=== PATIENT | female | born 1970 | race American Indian/Alaskan Native ===

== ENCOUNTER 2018-01-18 20:47 | Emergency (ER) | payer OTHER ==
[2018-01-18 21:05] VITALS: BP 103/71
[2018-01-19] MEDS ORDERED: TORADOL IM ONE
--- NOTE | 2018-01-19 | Emergency Department Report ---
ED Extremity Problem HPI - General Chief complaint: Extremity Injury, Lower Stated complaint: SWOLLEN HIP PAIN Time Seen by Provider: 01/18/18 23:45 Source: family Mode of arrival: Wheelchair Limitations: No Limitations - History of Present Illness Initial comments: 47-year-old -[place] female comes in with chronic left hip pain reports that she is having left hip pain that started on Sunday. Patient denies any trauma any injury. Patient reports that she took Percocet this morning at 7 AM. Patient denies any fever or chills denies any swelling to her left hip denies any warmth to her left hip. She reports her surgeon was Dr. Steve Beal. She is a past medical history of diabetes hypertension and anxiety. Patient's primary care provider is Dr. Jayme Juárez. Complaint: extremity pain -: days(s) (5) Location: left History of Same: Yes Radiation: none Severity scale (0 -10): 10 Quality: constant Improves with: nothing Worsens with: walking - Related Data Previous Rx's Medication Instructions Recorded Last Taken Type Ibuprofen [Motrin 600 MG tab] 600 mg PO Q8H PRN #30 tablet 01/19/18 Unknown Rx Allergies Allergy/AdvReac Type Severity Reaction Status Date / Time No Known Allergies Allergy Unverified 01/18/18 21:05 ED Review of Systems ROS: Stated complaint: SWOLLEN HIP PAIN Other details as noted in HPI Comment: All other systems reviewed and negative Musculoskeletal: arthralgia ED Past Medical Hx - Past Medical History Previous Medical History?: Yes Hx Hypertension: Yes Hx Diabetes: Yes Hx Psychiatric Treatment: Yes (anxiety) - Surgical History Past Surgical History?: Yes Additional Surgical History: hip replacement - Social History Smoking Status: Current Every Day Smoker Substance Use Type: None - Medications Home Medications: Home Medications Medication Instructions Recorded Confirmed Last Taken Type Ibuprofen [Motrin 600 MG tab] 600 mg PO Q8H PRN #30 tablet 01/19/18 Unknown Rx ED Physical Exam - General Limitations: No Limitations General appearance: alert (F hip), in no apparent distress, obese, other ( nontoxic) - Head Head exam: Present: atraumatic, normocephalic - Eye Eye exam: Present: EOMI - ENT ENT exam: Present: mucous membranes moist - Respiratory Respiratory exam: Present: normal lung sounds bilaterally. Absent: respiratory distress - Cardiovascular Cardiovascular Exam: Present: regular rate, normal rhythm. Absent: systolic murmur, diastolic murmur, rubs, gallop - Expanded Lower Extremity Exam Left Hip exam: Present: full ROM. Absent: swelling Upper Leg exam: Present: full ROM, tenderness (lateral trochanter). Absent: swelling, ecchymosis, erythema (no warmth, no redness) Knee exam: Present: normal inspection, full ROM. Absent: tenderness Lower Leg exam: Present: full ROM. Absent: tenderness, swelling Foot/Toe exam: Present: normal inspection, full ROM. Absent: tenderness, swelling - Back Exam Back exam: Present: normal inspection - Neurological Exam Neurological exam: Present: alert, oriented X3 - Psychiatric Psychiatric exam: Present: normal affect, normal mood - Skin Skin exam: Present: warm, dry, intact, normal color. Absent: rash ED Course Vital Signs 01/18/18 01/19/18 21:02 00:07 Temperature 98.7 F Pulse Rate 77 Respiratory 18 18 Rate Blood Pressure 103/71 O2 Sat by Pulse 97 Oximetry ED Medical Decision Making - Radiology Data Radiology results: report reviewed FINAL REPORT EXAM: XR HIP 2-3V LT HISTORY: hip pain concern for infection TECHNIQUE: An AP view of the pelvis was obtained along with additional view of the left hip. FINDINGS: There is previous total left arthroplasty. There is heterotopic ossification adjacent to the prosthesis. The soft tissues reveal multiple foci of air compatible with underlying infection. An underlying abscess cannot be excluded. There is no evidence of osteomyelitis otherwise. There is no evidence of fracture. The right hip joint is not show any acute changes. There hardware in the proximal right femur noted also. The SI joints appear normal. There are non specific calcifications along the floor pelvis. IMPRESSION: Foci of air in the soft tissues overlying the left hip. The findings are compatible underlying infection. An abscess cannot be excluded. Previous total left hip arthroplasty with areas of heterotopic calcification noted. No evidence of osteomyelitis otherwise. Transcribed By: RB Dictated By: TJ ULLOA MD Electronically Authenticated By: TJ ULLOA MD Signed Date/Time: 01/19/18105 DD/ 5 TD/TT: 01/19/18105 - Medical Decision Making Patient has been evaluated by this provider fast track. Patient will be given Toradol injection of 30 mg IM for pain management. Patient has not had any trauma no fever no swelling to the left hip. Ibuprofen 600 mg every 6-8 hours as needed for pain. Patient is to follow-up with her primary care provider or pain management provider. Review of [facility] aware shows a patient had a last dispense of Percocet for 60 pills. Her provider was Dr. Juárez. Discussed case with Dr. Paulina Bailon. Dr. Bailon came over to interview evaluate patient. X-rays of left hip completed shows foci soft tissue air. Based on vital signs and examination patient does not appear to be septic. Discussed the patient she needs to follow back up with her surgeon. Patient is afebrile and nontachypneic stable blood pressure. Critical care attestation.: If time is entered above; I have spent that time in minutes in the direct care of this critically ill patient, excluding procedure time. ED Disposition Clinical Impression: Chronic hip pain after total replacement of left hip joint Disposition: TO HOME OR SELFCARE Is pt being admited?: No Does the pt Need Aspirin: No Condition: Stable Additional Instructions: Is take pain medication as prescribed. I recommend follow him back up with her primary care provider as we do not treat chronic pain in the emergency room. You had been following Dr. Ephraim Juárez and he's been filling your prescriptions for your narcotics. Prescriptions: Ibuprofen [Motrin 600 MG tab] 600 mg PO Q8H PRN #30 tablet PRN Reason: Pain Referrals: GIRISH MARTIN MD [Primary Care Provider] - 3-5 Days FIDELINA JUÁREZ MD [Referring] - 3-5 Days Emigdio Cole [Other] - 3-5 Days
--- NOTE | 2018-01-19 01:08 | XRay Report ---
FINAL REPORT EXAM: XR HIP 2-3V LT HISTORY: hip pain concern for infection TECHNIQUE: An AP view of the pelvis was obtained along with additional view of the left hip. FINDINGS: There is previous total left arthroplasty. There is heterotopic ossification adjacent to the prosthesis. The soft tissues reveal multiple foci of air compatible with underlying infection. An underlying abscess cannot be excluded. There is no evidence of osteomyelitis otherwise. There is no evidence of fracture. The right hip joint is not show any acute changes. There hardware in the proximal right femur noted also. The SI joints appear normal. There are non specific calcifications along the floor pelvis. IMPRESSION: Foci of air in the soft tissues overlying the left hip. The findings are compatible underlying infection. An abscess cannot be excluded. Previous total left hip arthroplasty with areas of heterotopic calcification noted. No evidence of osteomyelitis otherwise.
== END 2018-01-19 02:10 | disposition home or self-care (01) ==
LOC: ED 20:47
DX: G89.29 Other chronic pain (principal); M25.552 Pain in left hip; I10 Essential (primary) hypertension; E11.9 Type 2 diabetes mellitus without complications; F17.200 Nicotine dependence, unspecified, uncomplicated; Z96.642 Presence of left artificial hip joint
CPT/HCPCS: 73502; 96372; 99283; J1885